=== PATIENT | female | born 1960 | race Caucasian/White ===

== ENCOUNTER 2024-04-06 08:00 | Outpatient (AMB) | payer MEDICARE, OTHER, SELFPAY ==
--- NOTE | 2024-04-06 08:11 | A.OFFVIS_ITS ---
Vital Signs 04/06/24 08:25 Height 5 ft 8 in Weight 163 lb 4 oz BMI 24.8 BP 148/96 H Blood Pressure Location Rt brachial Position Sitting Respiration 16 Pulse 77 Pulse Source Pulse Oximeter Pulse Oximetry (%) 96 Oxygen Delivery Method Room Air Intake Visit Reasons: ENP: Speech abnormality - LVM w/add Intake Note: Pt presents for new pt evaluation for speech abnormality. Marketing Development Representative Required: No Allergies codeine Allergy (Mild, Verified 04/06/24 08:12) Unknown Medication List - Last Reconciled 04/06/24 by Adelita Junior MD calcium carbonate 500 mg PO DAILY dhti-zhbnw-kye-D3-hyal-griffin bor 750 mg-100 mg- 25 mcg tabs PO ibuprofen 400 mg PO Q8H mometasone 0.1% 1 appl topical DAILY nnbzbppolcso-fchriuhj-cswzac 1 tab PO DAILY HPI Comments Details: 63y/o right handed female comes for evaluation of speech issues. she started noticing some word finding difficulties after she recovered from COVID about 8 mths ago.she feels it has improved slightly. she denies any memory issues,denies difficulty with execution. During COVID she had headaches, bodyaches, fever for 2 weeks . she had the Covid vaccine booster and tested positive that day. she has anxiety but not on treatment. she gets overwhelmed easily. she was very anxious when she had COVID. she sleeps good. [facility] Medical History (Updated 04/06/24 @ 08:52 by Adelita Junior MD) Word finding difficulty Hyperlipidemia Varicose veins of ankle Lichen sclerosus Degenerative disc disease at L5-S1 level Palpitations COVID Surgical History H/O breast biopsy Hx of exploratory laparotomy H/O section History of back surgery Social History Alcohol intake: current Comment: 4-5 drinks weekly Patient Tobacco Use Status: Never used Tobacco Use of substances other than those prescribed or required for medical reasons: No Physical Exam Vital Signs: Last Vital Signs Pulse 77 04/06/24 08:25 Resp 16 04/06/24 08:25 BP 148/96 H 04/06/24 08:25 Pulse Ox 96 04/06/24 08:25 Oxygen Delivery Method Room Air 04/06/24 08:25 BMI result Body Mass Index 24.8 Const General: cooperative, healthy appearing, comfortable and no acute distress Nutritional Appearance: average body habitus Orientation/consciousness: patient oriented x3 Eyes Pupils: Equal, round and reactive pupils present Neuro Other: MOCA General: patient oriented x3, gait normal, tone normal, moves all extremities and no focal motor deficits Cranial nerves: Yes Facial sensation intact/muscles of mastication intact, Yes Equal, round and reactive pupils present, Yes Bilaterally intact EOM present, Yes Nystagmus not present, Yes Normal facial strength present, Yes Midline tongue present, Yes Symmetric palate elevation present and Yes Ability to bilaterally elevate shoulders present Cognition (Neuro): normal cognition Gait exam (Neuro): Normal gait present Motor exam (neuro): 5/5 motor strength present throughout and Normal motor muscle tone present throughout Deep tendon reflexes (DTR's): Right triceps reflex intensity grade: 2+, Left triceps reflex intensity grade: 2+, Rt Biceps (C5, C6): 2+, Left biceps reflex intensity grade: 2+, Right brachioradialis reflex intensity grade: 2+, Left brachioradialis reflex intensity grade: 2+, Right patellar reflex intensity grade: 2+ and Left patellar reflex intensity grade: 2+ Coordination: crpfro-gy-cliv test normal Psych Other: anxious Assessment & Plan Assessment & Plan (1) Word finding difficulty: Comment: improving, likely related to anxiety Code(s): R47.89 - Other speech disturbances Category: Medical Plan I will schedule for CT Brain for evaluation Labs TSH Vit B 12 ESR Vit D CBC CMP Discussed about anxiety- she can manage without medications. she declines seeing a psychotherapist. Orders: Orders TSH reflex Free T4 Today R47.89 - Other speech disturbances Erythrocyte Sedimentation Rate Today R47.89 - Other speech disturbances Comprehensive Met. Panel Today R47.89 - Other speech disturbances Vitamin B12 and Folate Today R47.89 - Other speech disturbances Vitamin D 25-OH (D2 and D3) Today R47.89 - Other speech disturbances Complete Blood Count Auto Diff Today R47.89 - Other speech disturbances CT head/brain wo IV con Today R41.3 - Other amnesia Coding Level of Care Code New Pt Level 4 (32554) Diagnoses Word finding difficulty R47.89
[2024-04-06 08:25] VITALS: BP 148/96; PULSE 77; RESP 16; O2SAT 96; BMI 24.8
== END 2024-04-06 09:00 | disposition home or self-care (01) ==
PROVIDERS: PCP Internal Medicine; Referring Provider Internal Medicine; Visit Provider Psychiatry & Neurology Neurology
DX: R47.89 Other speech disturbances (principal)
CPT/HCPCS: 99204

== ENCOUNTER → 2024-04-06 08:00 | Outpatient (BNVA) | payer MEDICARE, OTHER, SELFPAY | PROVIDERS: PCP Internal Medicine; Referring Provider Internal Medicine; Visit Provider Psychiatry & Neurology Neurology | DX: R47.89 Other speech disturbances (principal); R41.3 Other amnesia | CPT/HCPCS: 99202 ==

== ENCOUNTER 2024-04-27 07:31 | Outpatient (REF) | payer MEDICARE, OTHER, SELFPAY ==
--- NOTE | ~2024-04-27 | CT_ITS ---
EXAMINATION CT HEAD WITHOUT CONTRAST CLINICAL INFORMATION: Amnesia COMPARISON: None TECHNIQUE: CT of the head was performed without intravenous contrast. Reformatted axial, coronal, and sagittal images were reviewed. This CT examination was performed using dose optimization techniques as appropriate, variously including the following: *Automated exposure control *Adjustment of mA and/or kV according to patient size (this includes techniques or standardized protocols for targeted exams where dose is matched to indication/reason for exam; i.e. extremities or head) *Use of iterative reconstruction technique DLP: 841 mGy-cm FINDINGS: No intracranial hemorrhage, extra-axial fluid collection, or midline shift is identified. [place]-white matter differentiation is preserved. The ventricles are within normal limits. Basal cisterns are within normal limits. Paranasal sinuses are clear. Mastoid air cells and middle ear cavities are clear. No acute calvarial fractures. CT/CT head/brain wo IV con IMPRESSION: No acute intracranial abnormality. Electronically signed by: Jourdan Oropeza DO 05/18/2024 10:06 PM EDT
== END 2024-04-27 07:32 | disposition home or self-care (01) ==
LOC: HO.CT 07:31
PROVIDERS: PCP Internal Medicine; Visit Provider Psychiatry & Neurology Neurology
DX: R41.3 Other amnesia (principal)
CPT/HCPCS: 70450